=== PATIENT | male | born 1970 | race Caucasian/White ===

== ENCOUNTER → 2021-12-07 | Outpatient (CLI) | payer OTHER ==
--- NOTE | 2021-12-07 14:59 | KCIC ---
EXAM: MRI LEFT KNEE DATE: 12/07/2021 11:05 AM CLINICAL INDICATION: Reason: SWELLING OF LEFT LOWER EXTREMITY / Spl. Instructions: Left knee scope in August 2021. / History: Left knee pain and entire leg swelling since surgery in August. COMPARISON: None. TECHNIQUE: Multiplanar, multisequence MRI of the LEFT knee was performed without contrast. FINDINGS: Small knee joint effusion. No Sapp's cyst. Changes of prior ACL reconstruction are seen. Graft fibers are grossly intact although not well asses sed given extensive susceptibility artifact within the joint space. PCL is intact. MCL, fibular collateral ligament, biceps femoris, IT band and popliteus are intact. Extensor mechanis m is intact. Medial meniscus: Changes of prior partial meniscectomy body-posterior horn without definite evidence for superimposed re-tear. Lateral meniscus: Trace blunting at the posterior horn-root lateral meniscus, shallow radial tear. Diffuse chondral thinning medial compartment IMPRESSION: 1. Changes of ACL reconstruction are seen. Extensive associated susceptibility artifact throughout t he left knee joint limits evaluation for integrity of the ACL graft fibers. However the visualized po rtions appear grossly intact. 2. Trace blunting at the posterior horn-root lateral meniscus, shallow radial tear. 3. Small knee joint effusion. Electronically signed by: Michael Farley MD (12/07/2021 2:57 PM) [id number]
== END ==
LOC: KCIC MRI 10:52
PROVIDERS: ATTEND Orthopaedic Surgery
DX: S83.412A Sprain of medial collateral ligament of left knee, initial encounter (principal); M25.462 Effusion, left knee; M79.89 Other specified soft tissue disorders; Z98.890 Other specified postprocedural states; X58.XXXA Exposure to other specified factors, initial encounter; Y93.89 Activity, other specified; Y92.89 Other specified places as the place of occurrence of the external cause; Y99.8 Other external cause status
CPT/HCPCS: 73721